=== PATIENT | female | born 1975 | race Caucasian/White ===

== ENCOUNTER 2021-08-19 08:17 | Day surgery (SDC) | payer OTHER ==
[~2021-08-19] VITALS: Ht 154.9 cm; Wt 59.1 kg
--- NOTE | ~2021-08-19 | OR ---
[facility] [address], [place] [address] Draft DATE OF OPERATION: 08/19/2021 SURGEON: Lonnie Canseco MD PREOPERATIVE DIAGNOSES: 1. Nasal obstruction due to inferior turbinate hypertrophy. 2. Alar cartilage columellar hypertrophy. POSTOPERATIVE DIAGNOSES: 1. Nasal obstruction due to inferior turbinate hypertrophy. 2. Alar cartilage columellar hypertrophy. PROCEDURE: Columelloplasty, cautery of the inferior turbinates. ANESTHESIA: General LMA. BETO Condon. PREOPERATIVE HISTORY: Andrea is a 46-year-old lady with a long history of nasal problems. She has had multiple procedures on her nose both for functional problems and cosmetic. Currently blockage of breathing, nasal obstruction caused by prominent columellar cartilages and inferior turbinate hypertrophy and this has been unresponsive to appropriate medications. She was taken to the operating room for the above-mentioned procedures. OPERATIVE PROCEDURE AND FINDINGS: After informed consent, the patient was taken to the operating room, placed in supine position where general LMA anesthesia was induced. The patient and procedure were verified. The patient received preoperative intranasal oxymetazoline and intravenous Ancef. Headlight speculum exam of the nasal cavity showed a very widened columella due to alar cartilage hypertrophy. These cartilage was obstructive bilaterally, mainly on the right side. 1% lidocaine with epi was injected over these cartilage obstructions on the left and the right side of the columella. Elliptical excision was then performed starting on the left side about 2 cm excision with underlying cartilage and soft tissue removed, the bleeding was controlled with needle point cautery. The wound was closed with 5-0 interrupted nylon. The right side also had the same procedure done about a 3 cm incision on this side with removal of subcutaneous cartilage and soft tissue. Hemostasis with needlepoint cautery and closure with 5-0 interrupted nylon. Columella was narrowed. Airway markedly improved in this manner. PATIENT NAME: ANDREA CRAWFORD OPERATIVE REPORT DATE OF : 71 REPORT #: [id number] PHYSICIAN: LONNIE CANSECO MD PCP: MICK PINEDA MD REPORT IS CONFIDENTIAL AND NOT TO BE RELEASED WITHOUT AUTHORIZATION [facility] [address], [place] [address] Draft Inferior turbinates were then cauterized with a long handle needle point cautery starting on the right side. Multiple passes transmucosal on the inferior turbinate and on the medial and inferior surface starting anteriorly extending all the way back posteriorly. Excellent shrinkage of the inferior turbinate was obtained in this manner. Same procedure on the left inferior turbinate, minimal bleeding stopped afterwards. Packing was then placed. Trimmed Merocel one piece same amount each side coated with Neosporin, tied anteriorly over a pad. The pharynx was then suctioned clear of blood secretions. Hemostasis was verified. The patient was awakened, extubated, and transported to the recovery room in good condition. COMPLICATIONS: None. BLOOD LOSS: Minimal. SPECIMEN: None. DRAINS: None. PACKING: One piece of Merocel in each nostril. Lonnie Canseco MD GC/MODL /[id number] Copies: ~ PATIENT NAME: YVETTEANDREA C OPERATIVE REPORT DATE OF : 71 REPORT #: [id number] PHYSICIAN: LONNIE CANSECO MD PCP: MICK PINEDA MD REPORT IS CONFIDENTIAL AND NOT TO BE RELEASED WITHOUT AUTHORIZATION
[~2021-08-19 08:17] MED LIST: ADRENOID CAPSU1 EACH PO; CRANBERRY400 MG PO; ESTRACE2 MG PO; PAPAYA ENZYME1 EACH PO; PROBIOTIC1 EAC5 PO; VIT C-ROSE HIP500 MG PO
--- NOTE | 2021-08-19 10:59 | NUR ---
08/19/21 1059 RASHI EDGAR 1047-PATIENT TO PACU ON 6L VIA MASK. PATIENT IS NONAROUSABLE. RR EVEN. SR. PACKING TO NOSE IS CLEAN, DRY, AND INTACT. ORAL AIRWAY IN PLACE.
--- NOTE | 2021-08-19 11:50 | NUR ---
PT ARRIVES BACK TO DS RM 6 FROM PACU AWAKE AND ALERT. PT DENIES NAUSEA BUT WOULD LIKE TO SPIT INTO EMESIS BAG, STATES NOT WANTING TO SWALLOW BLOOD BLOTS DUE TO NAUSEA. PT RATES PAIN 6/10 AND THAT IT IS STARTING TO GET WORSE, MOSTLY ON RIGHT SIDE OF SINUSES. PT ENCOURAGED TO EAT SOMETHING PRIOR TO PO PAIN MEDS. PT STATES CHRONIC NECK PAIN AND WOULD LIKE A WARM BLANKET ROLLED BEHIND NECK. CALL LIGHT WITHIN REACH, DC CRITERIA EXPLAINED.
[2021-08-19] MEDS ORDERED: KEFLEX750 MG PO (12:25)
[2021-08-19] MEDS ORDERED: HYDROCODON-ACE1 EA10 PO (12:25)
--- NOTE | 2021-08-19 12:46 | NUR ---
PT RESTING IN BED WATCHING TV, DENIES ANY NEEDS AT THIS TIME. PT STATES PAIN IS BETTER AND RATES 3/10. PT TOLERATES PO WELL WITH NO NAUSEA. ENCOURAGED TO USE CALL LIGHT WITH URGE TO VOID.
--- NOTE | 2021-08-19 15:15 | NUR ---
[id number]: PT UP TO BATHROOM WITH RN ASSIST, STEADY GAIT WITH NO COMPLAINTS OF NAUSEA OR DIZZINESS. PT ABLE TO VOID APPROX 900 MLS LIGHT YELLOW URINE, BACK TO DS RM 6 TO GET DRESSED.
== END 2021-08-19 13:05 | disposition home or self-care (01) ==
LOC: DS 08:17 → OPS 08:17 → DS 08:19 → OPS 10:00
PROVIDERS: ATTEND Otolaryngology
PROC: 09QK0ZZ Repair Nasal Mucosa and Soft Tissue, Open Approach (ICD-10-PCS; principal; 2021-08-19 10:00)
PROC: 095L0ZZ Destruction of Nasal Turbinate, Open Approach (ICD-10-PCS; 2021-08-19 10:00)
DX: M94.8X8 Other specified disorders of cartilage, other site (principal); J34.3 Hypertrophy of nasal turbinates; J45.909 Unspecified asthma, uncomplicated; M19.90 Unspecified osteoarthritis, unspecified site; Z88.2 Allergy status to sulfonamides; Z79.890 Hormone replacement therapy; Z20.822 Contact with and (suspected) exposure to COVID-19
CPT/HCPCS: 00160; C9803; J0690; J1100; J1885; J2001; J2250; J2405; J2704; J3010; J7121; U0003